=== PATIENT | female | born 1950 | race Caucasian/White ===

== ENCOUNTER 2023-09-17 22:18 | Inpatient (IN) | payer OTHER ==
[2023-09-17] MEDS ORDERED: VANCOMYCIN 1 GM/VIAL ONE (23:21)
[2023-09-17] MEDS ORDERED: ACETAMINOPHEN 500 MG TAB ONE (23:22)
[2023-09-17] MEDS ORDERED: NA CHLORIDE 0.9% 1,000 ML ONE (23:22)
[2023-09-17] MEDS ORDERED: NA CHLORIDE 0.9% 250 ML ONE (23:22)
[2023-09-17 23:28] LABS: Absolute Lymphocytes (CBC) 0.6 K/uL (0.7-4.9); Absolute Monocytes 0.1 K/uL (0.1-1.3); Absolute Neutrophil 3.3 K/uL (1.8-8.0); Basophils % 0.4 % (0-1.3); Eosinophils % 0.1 % (0-4.4); Hematocrit 23.3 % (36.0-45.0); Hemoglobin 7.9 g/dL (12.0-15.0); Lymphocytes % 15.1 % (15.3-44.8); MCH 28.7 pg (27.0-35.0); MCHC 33.8 g/dL (32.0-36.0); MCV 85.1 fL (80-100); MPV 7.9 fL (7.6-11.3); Monocytes % 2.7 % (3.3-12.3); Neutrophils % 81.7 % (41.7-73.7); Nucleated Red Blood Cells % 0.3 % (0-0); Platelets 233 thou/uL (152-406); RBC Red Blood Cell Count 2.74 M/uL (3.86-4.86); Red Cell Distribution Width 16.1 % (12.1-15.2)
[2023-09-17 23:32] LABS: Specific Gravity 1.005 (1.005-1.030); Sqamous Epithelial >50 /HPF (None Seen); Urine Bacteria None Seen /HPF (<20); Urine Bilirubin NEGATIVE (Negative); Urine Blood 3+ (Negative); Urine Clarity Extremely Turbid (Clear); Urine Color Dark-Brown (Yellow); Urine Culture Reflex Order NOT NEEDED; Urine Glucose NEGATIVE (Negative); Urine Ketones NEGATIVE (Negative); Urine Microscopic Reflex YN ORDER UMIC; Urine Mucus 4+ /HPF (None Seen); Urine Nitrite NEGATIVE (Negative); Urine Protein 3+ (Negative); Urine RBC None Seen /HPF (None Seen); Urine Urobilinogen Normal (Normal); Urine WBC None Seen /HPF (<5); Urine pH 7.5 (5.0-7.0)
[2023-09-17 23:41] LABS: PT Prothrombin Time 33.4 SECONDS (9.5-12.5); PTT, Activated Partial Thromb 36.8 SECONDS (24.3-36.9); Protime INR 3.14
[2023-09-17 23:48] LABS: Albumin 2.2 g/dL (3.4-5.0); Albumin/Globulin Ratio 0.8 (1.1-1.8); Anion Gap 11.2 mEq/L (5.0-15.0); Bilirubin Total 1.1 mg/dL (0.2-1.0); Globulin 2.6 g/dL (2.3-3.5); Potassium 4.2 mEq/L (3.5-5.1); Protein, Total 4.8 g/dL (6.4-8.2)
[2023-09-18] MEDS ORDERED: NA CHLORIDE 0.9% 1,000 ML ONE (02:30)
--- NOTE | 2023-09-18 03:30 | ER ---
Nurse's Notes [facility] Name: Jolanta Alvarenga Age: 73 yrs Sex: Female : 1950 Arrival Date: 09/17/2023 Time: 22:18 Bed 7 Private MD: Diagnosis: Cellulitis of right axilla;Abscess of the axilla Presentation: 09/16 22:20 Chief complaint: EMS states: progressively became weak in the past few days, diagnosed rv with Breast Ca with mets last June 2022, has been on chemo. decreased appetite. lymph edema on the right arm, and bilateral lower extremities. with wound in the right axilla, with redness, discharge, foul odor. Coronavirus screen: At this time, the client does not indicate any symptoms associated with coronavirus-19. Ebola Screen: No symptoms or risks identified at this time. Initial Sepsis Screen: Does the patient meet any 2 criteria? No. Patient's initial sepsis screen is negative. Does the patient have a suspected source of infection? No. Patient's initial sepsis screen is negative. Risk Assessment: Do you want to hurt yourself or someone else? Patient reports no desire to harm self or others. Onset of symptoms was September 17, 2023. 22:20 Method Of Arrival: EMS: allegiance 22:20 Acuity: CORI 3 rv Triage Assessment: 22:24 General: Appears ill, obese, unkempt, Behavior is calm, cooperative. Pain: Denies pain. rv Neuro: Level of Consciousness is awake, alert, obeys commands, Oriented to person, place, time, situation. Cardiovascular: Capillary refill < 3 seconds Patient's skin is warm and dry. Respiratory: Airway is patent Respiratory effort is even, unlabored. GI: Reports anorexia. Derm: Wound noted right axilla. Historical: - Allergies: 22:24 No Known Allergies; rv - PMHx: 22:24 breast cancer; Hypertensive disorder; rv - PSHx: 22:24 tumor removal; rv - Immunization history:: Adult Immunizations up to date. - Infectious Disease History:: Denies. - Social history:: Smoking status: Patient denies any tobacco usage or history of. Screenin:25 [facility] ED Fall Risk Assessment (Adult) History of falling in the last 3 months, rv including since admission No falls in past 3 months (0 pts) Score/Fall Risk Level 0 - 2 = Low Risk Oriented to surroundings, Maintained a safe environment, Educated pt \T\ family on fall prevention, incl call for assistance when getting out of bed, Assessed \T\ reinforced patient's understanding of fall precautions. Abuse screen: Denies threats or abuse. Denies injuries from another. Nutritional screening: No deficits noted. Tuberculosis screening: No symptoms or risk factors identified. Assessment: 09/17 04:35 Reassessment: Patient is alert, oriented x 3, equal unlabored respirations, skin rv warm/dry/pink. Vital Signs: 09/16 22:20 BP 119 / 77; Pulse 87; Resp 18; Temp 98.3; Pulse Ox 100% on R/A; rv 09/17 02:11 BP 95 / 55; Pulse 69; Resp 18; Pulse Ox 100% on R/A; jb4 03:31 BP 89 / 57; Pulse 66; Resp 16; Pulse Ox 100% on R/A; rv 04:33 BP 94 / 54; Pulse 67; Resp 17; Temp 98; Pulse Ox 99% on R/A; rv ED Course: 09/16 22:20 Patient arrived in ED. rv 22:23 Rigo Carmen MD is Attending Physician. ec2 22:24 Triage completed. rv 22:25 Arm band placed on right wrist. rv 22:25 Patient has correct armband on for positive identification. Client placed on continuous rv cardiac and pulse oximetry monitoring. NIBP monitoring applied. roller cleaner on. 22:25 No provider procedures requiring assistance completed. Maintain EMS IV. Dressing rv intact. Good blood return noted. Site clean \T\ dry. Gauge \T\ site: G18 LEFT AC. 22:58 Ford Hernandez, YULI is Primary Nurse. rv 23:04 Chest Single View XRAY In Process Unspecified. EDMS 23:05 Initial lab(s) drawn, by me, sent to lab. First set of blood cultures drawn by me. rv 23:20 Second set of blood cultures drawn by me, EKG done, reviewed by Rigo Carmen MD. rv 23:35 Creatine Phosphokinase Sent. rv 23:35 Lactate w/ 2H reflex if indic. Sent. rv 23:35 CBC with Diff Sent. rv 23:35 Blood Culture Adult (2) Sent. rv 23:35 CMP Sent. rv 23:35 Protime (+inr) Sent. rv 23:35 Ptt, Activated Sent. rv 09/17 00:46 CT Chest, Abdomen, Pelvis - W/Contrast In Process Unspecified. EDMS 03:30 Denis Gray MD is Hospitalizing Provider. ec2 04:33 Patient admitted, IV remains in place. rv 06:50 Rigo Carmen MD is Attending Physician. ec2 08:49 patients son would like to be called and updated when she is moved upstairs/ his cell eb is [phone]. 11:55 Cleaned of incontinence. nj1 12:05 Provided Education on: na. ko1 Administered Medications: 09/16 23:35 Drug: Acetaminophen PO 1000 mg PO once Route: PO; rv 09/17 03:37 Follow up: Response: No adverse reaction rv 09/16 23:35 Drug: vancoMYCIN IVPB 1 grams IVPB once over 2 hrs Route: IVPB; Infused Over: 2 hrs; rv Site: left antecubital; 09/17 03:37 Follow up: Response: No adverse reaction; IV Status: Completed infusion; IV Intake: rv 250ml 09/16 23:35 Drug: NS 0.9% IV 1000 ml IV at 1 bolus Per protocol; 1000 mL bolus Route: IV; Rate: 1 rv bolus; Site: left antecubital; 09/17 03:36 Follow up: IV Status: Completed infusion; IV Intake: 1000ml rv 02:33 Drug: NS 0.9% IV 1000 ml IV at 1 bolus Per protocol; 1000 mL bolus Route: IV; Rate: 1 rv bolus; Site: left antecubital; 03:36 Follow up: IV Status: Completed infusion; IV Intake: 1000ml rv 03:36 Drug: Cefepime IVPB 1 grams IVPB at 200 ml/hr once over 30 mins; (mix in NS 100 mL) rv Route: IVPB; Rate: 200 ml/hr; Infused Over: 30 mins; Site: left antecubital; 04:34 Follow up: Response: No adverse reaction; IV Status: Completed infusion rv Medication: 09/16 22:25 VIS not applicable for this client. rv Intake: 09/17 03:36 IV: 1000ml; Total: 1000ml. rv 03:36 IV: 1000ml; Total: 2000ml. rv 03:37 IV: 250ml; Total: 2250ml. rv Outcome: 03:30 Decision to Hospitalize by Provider. ec2 04:34 Admitted to ER Hold. Please see [facility] for further documentation. rv 04:34 Condition: good 04:34 Instructed on the need for admit, 12:06 Patient left the ED. ko1 Signatures: Dispatcher [employer] EDErik Billy RN RN jb4 Erica Morris Ronaldo RN RN rv Estrellita Villafuerte RN RN ko1 Bambi Tejeda RN RN nj1 Rigo Carmen MD MD ec2
--- NOTE | 2023-09-18 03:31 | EDPHYS ---
Physician Documentation [facility] Name: Jolanta Alvarenga Age: 73 yrs Sex: Female : 1950 Arrival Date: 09/17/2023 Time: 22:18 Bed 7 Private MD: ED Physician Rigo Carmen HPI: 09/16 22:44 This 73 yrs old Female presents to ER via EMS with complaints of General Weakness. ec2 22:44 Patient arrives today for general weakness. Patient with increased malaise over the ec2 past couple weeks. Patient not been caring for resolved has not been bathing. Patient reports no fevers or chills, no nausea or vomiting. Patient reports decreased p.o. intake, some bouts of diarrhea. Patient with history of breast cancer, undergoing chemotherapy with Dr. Ferrell. . Historical: - Allergies: 22:24 No Known Allergies; rv - PMHx: 22:24 breast cancer; Hypertensive disorder; rv - PSHx: 22:24 tumor removal; rv - Immunization history:: Adult Immunizations up to date. - Infectious Disease History:: Denies. - Social history:: Smoking status: Patient denies any tobacco usage or history of. ROS: 22:45 Constitutional: as per hpi ec2 Exam: 22:45 Constitutional: GEN: NAD Head: atraumatic Eyes: EOMI Ears: External ears are ec2 normal. CV: regular rate LUNGS: no respiratory distress ABD: non-distended SKIN: Significant skin breakdown to the right axilla with drainage noted. Groin with significant erythema and warmth and discharge and moisture noted. MSK: no evidence of trauma NEURO: moves all extremities equally Vital Signs: 22:20 BP 119 / 77; Pulse 87; Resp 18; Temp 98.3; Pulse Ox 100% on R/A; rv 09/17 02:11 BP 95 / 55; Pulse 69; Resp 18; Pulse Ox 100% on R/A; jb4 03:31 BP 89 / 57; Pulse 66; Resp 16; Pulse Ox 100% on R/A; rv 04:33 BP 94 / 54; Pulse 67; Resp 17; Temp 98; Pulse Ox 99% on R/A; rv MDM: 09/16 22:43 Patient medically screened. ec2 22:45 Data reviewed: vital signs. ED course: Patient arrives today for evaluation of feeling ec2 unwell. Examination remarkable for skin findings as above. Will obtain lab work, CT imaging, chest x-ray, urine studies. Empirically treat with antibiotics, give the patient crystalloid. . 09/17 00:06 ED course: CBC shows slight anemia, slight leukopenia with a WBC of 4. Metabolic ec2 profile shows appropriate electrolytes and renal function. INR elevated at 3.14. Urine is markedly contaminated. Lactate within normal ranges. . 03:26 ED course: I discussed case with Dr. Stiles, general surgery, agrees to consult on the ec2 patient, will see patient in the a.m., plan to keep n.p.o. and possible intervention for the abscess. Patient updated on plan of care, hospitalist contacted for admission.. 09/16 22:44 Order name: Blood Culture Adult (2) ec2 09/16 22:44 Order name: CBC with Diff; Complete Time: 00:05 ec2 09/16 22:44 Order name: CMP; Complete Time: 00:05 ec2 09/16 22:44 Order name: Protime (+inr); Complete Time: 00:05 ec2 09/16 22:44 Order name: Ptt, Activated; Complete Time: 00:05 ec2 09/16 22:44 Order name: Urinalysis w/ reflexes; Complete Time: 00:05 ec2 09/16 23:15 Order name: Lactate w/ 2H reflex if indic.; Complete Time: 00:05 rv 09/16 23:27 Order name: Creatine Phosphokinase; Complete Time: 00:05 EDMS 09/17 05:09 Order name: CBC with Automated Diff EDMS 09/17 05:09 Order name: CBC with Automated Diff EDMS 09/17 05:09 Order name: Comprehensive Metabolic Panel EDMS 09/17 05:09 Order name: Comprehensive Metabolic Panel EDMS 09/17 05:09 Order name: Vancomycin Level Trough EDMS 09/17 05:09 Order name: Vancomycin Level Trough EDMS 09/17 05:10 Order name: Thyroid Stimulating Hormone EDMS 09/17 05:10 Order name: Magnesium EDMS 09/17 05:10 Order name: Magnesium EDMS 09/17 05:10 Order name: Magnesium EDMS 09/17 05:10 Order name: Magnesium EDMS 09/17 08:03 Order name: CBC with Automated Diff EDMS 09/17 08:21 Order name: Basic Metabolic Panel EDDE 09/17 08:22 Order name: Magnesium EDDE 09/17 09:23 Order name: Manual Differential EDDE 09/17 09:23 Order name: CBC Smear Scan EDDE 09/16 22:44 Order name: Chest Single View XRAY ec2 09/16 22:45 Order name: CT Chest, Abdomen, Pelvis - W/Contrast ec2 09/16 22:44 Order name: EKG; Complete Time: 22:45 ec2 09/17 05:09 Order name: CONS Physician Consult EDDE 09/17 05:10 Order name: CONS Physician Consult EDDE 09/16 22:44 Order name: Accucheck; Complete Time: 22:58 ec2 09/16 22:44 Order name: Cardiac monitoring; Complete Time: 22:58 ec2 09/16 22:44 Order name: EKG - Nurse/Tech; Complete Time: 22:58 ec2 09/16 22:44 Order name: IV Saline Lock - Large Bore; Complete Time: 22:58 ec2 09/16 22:44 Order name: Labs collected and sent; Complete Time: 22:58 ec2 09/16 22:44 Order name: O2 Per Protocol; Complete Time: 22:59 ec2 09/16 22:44 Order name: O2 Sat Monitoring; Complete Time: 22:58 ec2 09/16 22:44 Order name: Vital Signs; Complete Time: 22:58 ec2 09/17 03:26 Order name: NPO; Complete Time: 03:31 ec2 Administered Medications: 09/16 23:35 Drug: Acetaminophen PO 1000 mg PO once Route: PO; rv 09/17 03:37 Follow up: Response: No adverse reaction rv 09/16 23:35 Drug: vancoMYCIN IVPB 1 grams IVPB once over 2 hrs Route: IVPB; Infused Over: 2 hrs; rv Site: left antecubital; 09/17 03:37 Follow up: Response: No adverse reaction; IV Status: Completed infusion; IV Intake: rv 250ml 09/16 23:35 Drug: NS 0.9% IV 1000 ml IV at 1 bolus Per protocol; 1000 mL bolus Route: IV; Rate: 1 rv bolus; Site: left antecubital; 09/17 03:36 Follow up: IV Status: Completed infusion; IV Intake: 1000ml rv 02:33 Drug: NS 0.9% IV 1000 ml IV at 1 bolus Per protocol; 1000 mL bolus Route: IV; Rate: 1 rv bolus; Site: left antecubital; 03:36 Follow up: IV Status: Completed infusion; IV Intake: 1000ml rv 03:36 Drug: Cefepime IVPB 1 grams IVPB at 200 ml/hr once over 30 mins; (mix in NS 100 mL) rv Route: IVPB; Rate: 200 ml/hr; Infused Over: 30 mins; Site: left antecubital; 04:34 Follow up: Response: No adverse reaction; IV Status: Completed infusion rv Disposition Summary: 09/18/23 03:30 Hospitalization Ordered Notes: Hospitalization Status: Inpatient Admission ec2 Provider: Denis Gray ec2 Condition: Stable ec2 Problem: new ec2 Symptoms: have improved ec2 Bed/Room Type: Standard ec2 Location: Telemetry/MedSurg (Inpatient)(09/18/23 11:10) eb Room Assignment: [facility](09/18/23 11:10) eb Diagnosis - Cellulitis of right axilla ec2 - Abscess of the axilla ec2 Forms: - Medication Reconciliation Form ec2 - SBAR form ec2 - Leadership Thank You Letter ec2 Signatures: Dispatcher [employer] EDErica Rivera Ronaldo, RN RN rv Keesha Friedman 5 Rigo Carmen MD MD ec2 Corrections: (The following items were deleted from the chart) 09/16 22:45 22:44 BLOOD CULTURE*+BA.LAB.BRZ ordered. [facility] 22:45 22:44 CBC+H.LAB.BRZ ordered. [facility] 22:45 22:44 COMPREHENSIVE METABOLIC PANEL+C.LAB.BRZ ordered. [facility] 22:45 22:44 PROTIME (+INR)+COAG.LAB.BRZ ordered. [facility] 22:45 22:44 PTT, ACTIVATED+COAG.LAB.BRZ ordered. [facility] 22:45 22:44 Urinalysis+U.LAB.BRZ ordered. [facility] 23:27 23:16 CREATINE PHOSPHOKINASE+C.LAB.BRZ ordered. [facility] 09/17 04:12 03:30 Telemetry/MedSurg (Inpatient) ec2 mc5 04:12 03:30 ec2 mc5 11:10 04:12 [facility] mc5 eb 11:10 04:12 [facility]- mc5 eb
[2023-09-18] MEDS ORDERED: WATER FOR INJ,STERILE 10 ML ONE (03:33)
[2023-09-18] MEDS ORDERED: CEFEPIME 1 GM/VIAL ONE ×2 (03:33→08:21)
--- NOTE | 2023-09-18 05:02 | P.HP ---
Certification for Inpatient With expected LOS: >2 Midnights Patient will require the following post-hospital care: Home Health Services Practitioner: I am a practitioner with admitting privileges, knowledge of patient current condition, hospital course, and medical plan of care. Services: Services provided to patient in accordance with Admission requirements found in Title 42 Section 412.3 of the Code of Federal Regulations Patient History Date of Service: 09/18/23 Reason for admission: Weakness History of Present Illness: 73-year-old female with past medical history of HTN, obesity, A-fib on chronic anticoagulation with Eliquis, brain mass status post craniectomy 6 months ago, right breast canceron chemotherapy with Dr. Ferrell, presented because of increasing weakness and malaise since the last 1 week. She states she has been unable to shower walk to care for self. She admits to intermittent chills but denies any overt fever. She denies any nausea vomiting she admits to decreased p.o. intake. She states some loose stools with diarrhea but denies any dysuria or hematuria. On arrival in the ED she was noted with mild leukopenia with WBC at 4.0, hemoglobin of 7.9, BMP shows sodium of 135. Urinalysis was positive for UTI. Further workup shows discharge with redness over the right axillary area. Surgery was consulted for right axillary abscess. Allergies No Known Allergies Allergy (Verified 05/14/23 14:46) Home Medications: Codeine/APAP [Tylenol #3*] 1 tab PO Q6H PRN 05/15/23 Famotidine [Pepcid*] 20 mg PO BID 05/15/23 Melatonin [Melatonin*] 3 mg PO BEDTIME PRN 05/15/23 Nifedipine Xl [Procardia Xl*] 30 mg PO DAILY 05/15/23 Vitamin D [Drisdol*] 50,000 unit PO Q7D 05/15/23 carvediloL [Carvedilol] 6.25 mg PO BID 05/15/23 dexAMETHasone [Dexamethasone] 2 mg PO BID 05/15/23 Cranberry Fruit Extract 200 mg PO BID cap 05/20/23 - Past Medical/Surgical History Has patient received pneumonia vaccine in the past: No Diabetic: No -: afib -: htn -: Breast cancer -: Craniotomy for brain mass - Family History Family History: Reviewed- Non-Contributory - Social History Smoking Status: Never smoker Alcohol use: No CD- Drugs: No Caffeine use: No Place of Residence: Home Review of Systems General: Fever, Chills, Weakness, Malaise Gastrointestinal: Nausea, Diarrhea Neurological: Weakness Physical Examination - Physical Exam General: Alert, Oriented x3, Cooperative, Obese HEENT: Atraumatic, Normocephalic, PERRLA Neck: Supple, 2+ carotid pulse no bruit, JVD not distended Respiratory: Clear to auscultation bilaterally, Normal air movement Cardiovascular: Regular rate/rhythm, Normal S1 S2, Edema Gastrointestinal: Normal bowel sounds, Soft and benign, Non-distended Musculoskeletal: Swelling Integumentary: Other (right breast mass with ulceration and discharge on lateral border extending to axilla) Neurological: Normal speech, Normal strength at 5/5 x4 extr, Cranial nerves 3-12 intact - Studies Laboratory Data (last 24 hrs) 09/17/23 09/17/23 09/17/23 23:05 23:05 23:05 WBC 4.00 L Hgb 7.9 L Hct 23.3 L Plt Count 233 PT 33.4 H INR 3.14 APTT 36.8 Sodium 135 L Potassium 4.2 BUN 14 Creatinine 0.51 L Glucose 111 H Total Bilirubin 1.1 H AST 15 ALT 21 Alkaline Phosphatase 55 Assessment and Plan - Problems (Diagnosis) (1) Breast cancer Current Visit: Yes Status: Acute (2) Abscess of right breast Current Visit: Yes Status: Acute (3) Atrial fibrillation Current Visit: Yes Status: Acute (4) HTN (hypertension) Current Visit: Yes Status: Acute - Plan Impression Right breast cancer with inflammatory cellulitis Hypotensiontransient Atrial fibrillation Obesity Lower extremity edema with lymphedema Plan Will admit to inpatient General surgery consult for possible incision and debridement Extensive inflammatory access and discharge appears to be more secondary bacterial infection of the breast cancer lesion Antibiotics with Vanco and cefepime Follow blood culture Oncology consult with Dr. Ferrell Pain controlled Continue Eliquis for A-fib Borderline low blood pressure, hold Coreg for now Full code Discharge Plan: Home Plan to discharge in: Greater than 2 days - Advance Directives Does patient have a Living Will: Yes Does patient have a Durable POA for Healthcare: Yes - Code Status/Comfort Care Code Status Assessed: Yes Code Status: Full Code Physician Review: Patient Assessed, Agree with Above Assessment and Plan
[2023-09-18] MEDS ORDERED: ACETAMINOPHEN 500 MG TAB PO PRN (05:03)
[2023-09-18] MEDS ORDERED: MORPHINE 2 MG/ML SYR IV PRN (05:03)
[2023-09-18] MEDS ORDERED: ONDANSETRON 4 MG/2 ML VIAL IV PRN (05:03)
[2023-09-18] MEDS ORDERED: ALBUTEROL 2.5 MG/3 ML NEB SOL NEB PRN ×2 (05:03→09:51)
[2023-09-18] MEDS ORDERED: VANCOMYCIN 1 GM in NA CHLORIDE 0.9% 250 ML IVPB SCH (06:00)
[2023-09-18 06:02] VITALS: BMI 33.5
[2023-09-18] MEDS: VANCOMYCIN 500 MG in NA CHLORIDE 0.9% 100 ML IVPB ONE (06:30)
[2023-09-18] MEDS ORDERED: VANCOMYCIN 500 MG/VIAL ONE (06:39)
[2023-09-18] MEDS ORDERED: NA CHLORIDE 0.9% 100 ML ONE ×2 (06:39→08:21)
[2023-09-18] MEDS: PNEUMOCOCCAL VACCINE 0.5 ML IMVAC ONE (08:00)
[2023-09-18] MEDS: INFLUENZA VACCINE (for 6+ mo) 0.5 ML DOSE IMVAC ONE (08:00)
[2023-09-18 08:02] LABS: Absolute Lymphocytes (CBC) 0.6 K/uL (0.7-4.9); Absolute Monocytes 0.1 K/uL (0.1-1.3); Eosinophils % 0.1 % (0-4.4); Hematocrit 22.4 % (36.0-45.0); Hemoglobin 7.4 g/dL (12.0-15.0); Lymphocytes % 20.9 % (15.3-44.8); MCH 28.6 pg (27.0-35.0); MCHC 33.2 g/dL (32.0-36.0); MCV 85.9 fL (80-100); Monocytes % 3.3 % (3.3-12.3); Neutrophils % 74.7 % (41.7-73.7); Nucleated Red Blood Cells % 0.2 % (0-0); Platelets 202 thou/uL (152-406); RBC Red Blood Cell Count 2.61 M/uL (3.86-4.86)
[2023-09-18 08:17] LABS: Magnesium 1.9 mg/dL (1.6-2.4)
[2023-09-18 08:36] LABS: Magnesium 1.8 mg/dL (1.6-2.4); Thyroid Stimulating Hormone 0.729 uIU/mL (0.358-3.740)
[2023-09-18] MEDS: CEFEPIME 1 GM in NA CHLORIDE 0.9% 100 ML IV SCH (09:00)
[2023-09-18] MEDS ORDERED: APIXABAN 5 MG TABLET PO SCH (09:00)
[2023-09-18 09:22] LABS: Differential Total Cells Count 100; Segmented Neutrophils 52 % (40-80); White Blood Cell Scan DIFF (OK)
[2023-09-18 09:23] LABS: Band Neutrophils 23 % (0-1); Blood Morphology Comment NOT SEEN (NOT SEEN); Lymphocytes 20 % (15-42); Metamyelocytes 2 % (0-0); Monocytes 3 % (0-10); Platelet Estimate ADEQ
--- NOTE | 2023-09-18 11:17 | P.PN ---
Date of Service: 09/18/23 Subjective: Reports worsening weakness and malaise for ~1 week. +intermittent chills and diarrhea denies any bleeding. No obvious bleeds on exam decreased PO intake last few days s/p several weeks of chemo unable to say how long she has had skin changes - "haven't looked at it in awhile" ROS: 10 point ROS as noted above, otherwise negative Physical Exam: GEN: Alert, oriented HEENT: Normal conjunctiva, sclera anicteric CV: Regular rate and rhythm, b/l lower extremity lymphedema Pulm: Nonlabored respirations on room air, clear bilaterally ABD: Soft, nontender, nondistended Integumentary: right breast mass with ulceration and discharge on lateral border extending to axilla. intertrigo of inguinal fold Neuro: Normal speech, normal affect vitals reviewed Problem List: Right Breast cancer with inflammatory cellulitis; on chemotherapy intertrigo Anemia of chronic disease secondary to bone marrow suppression from chemo Transient hypotension A-fib on chronic anticoagulation Brain Mass s/p craniectomy (~6months ago) Lower extremity lymphedema Right Breast cancer with inflammatory cellulitis; on chemotherapy reports worsening weakness / malaise x1 week. +intermittent chills and diarrhea/loose stool. No Nausea/vomiting but does report decreased PO intake recently last chemo treatment ~1 week ago. Gets chemo weekly Reports knowing about fluid collection for few months CT chest/abd/pelvis (09/17): Right axillary fluid collection (4.1x3cm) with edema in right lateral chest wall and RUE. +Possible distal rectosigmoid colitis. Large amount of stool/air in colon. General surgery, Dr. Stiles to [place] for possible I&D medical management with antibiotics for now. continue empiric cefepime / vanc (09/17-) follow blood cultures Oncology, Dr. Ferrell consulted discussed with Dr. Ferrell over the phone, could be necrosis secondary to chemo - would be expected within given timeline; if no other infectious critieria (fever/leukotycosis) unclear what skin changes she presented to oncology with, but did present with some degree of erythema/ulceration prior to starting chemo PRN analgesics / antiemetics intertrigo inguinal fold start nystatin powder Anemia of chronic disease secondary to bone marrow suppression from chemo Patient denies any bleeding recently. No obvious bleeds on exam. Denies any abdominal pain. No bloody stools Past iron studies from jul 2023 (iron 54, tsat% 20.4%) hgb 7.9 -> 7.4 most likely secondary to chemo / bone marrow suppression Transient hypotension confirm home meds. Hold antihypertensives for now Monitor BP suspect volume depletion, secondary to decreased oral intake and diarrhea A-fib on chronic anticoagulation Takes eliquis at home. stop eliquis for now. VTE: hold eliquis for now Code: Full Dispo: Home, ~2 days Pending surgical recs / improvement
--- NOTE | 2023-09-18 11:41 | CON ---
Date of Consultation: 09/18/2023 Reason For Consultation: Fluid collection in the right axilla. History Of Present Illness: The patient is a 73-year-old female with past medical history of hyperte nsion, morbid obesity, AFib, on chronic anticoagulation with Eliquis, right breast cancer, which is b eing treated with chemotherapy at this time and a craniectomy 6 months ago for a mass in the brain. The patient presented to the hospital with weakness and malaise for the last week. Last chemo treatm ent was this past week and she took her Eliquis last night. She denies any nausea or vomiting. No d iarrhea or constipation. No dysuria or hematuria. No blood in her stools. No blood in her urine. No sore throat, runny nose, cough, headaches, or dizziness. No chest pain. No fever or chills. Review of Systems: Otherwise, unremarkable. Past Medical History: As per HPI with AFib, hypertension, right breast cancer. Past Surgical History: Craniotomy for brain mass. Allergies: NONE. Social History: Patient does not smoke or drink alcohol. Family History: Noncontributory. Physical Examination: Vital Signs: Stable. Blood pressure is 96/59. She is afebrile. General: She is awake, alert, oriented x3. Head and Neck: No masses. Chest: Clear. Heart: S1, S2. Abdomen: Soft. Extremities: Groin has a rash. There may be fungus in both groins. Extremity very edematous, nonte nder. Breast: Right breast: There is excoriation of the skin on the right lateral breast as a fluctuant f luid in the right axilla; however, there is no warmth and there is no drainage. Musculoskeletal: The right arm appears to have lymphedema in it. Laboratory Data: Her white count is 2.6, H and H is 7.4 and 22.4, neutrophil percentage is 74.7. IN R is 3.14. Electrolytes reviewed. CT of the abdomen and pelvis and chest reveals a right axillary f luid collection with edema in the right lateral chest wall as throughout the right upper extremity. Right upper extremity venous circulation not adequately visualized, possible distal rectosigmoid coli tis. Assessment: A 73-year-old female, what appears to be an advanced breast cancer with possible mets to the brain and receiving chemotherapy with right axillary fluid collection. The patient clinically i s not having complaints with this fluid collection. She states that it has been there for some time and she has no complaint about the rashes in her groin or the excoriation of the skin on the right br east. Recommendations: The patient needs to be hydrated and treated with antibiotics for possible abscess in the axilla, although this seems like a chronic seroma more likely. We will await Dr. Ferrell's evalu ation and discuss with her what the baseline for this patient is and what the best plan going forward would be. I would recommend that we hold the Eliquis and treat her with Lovenox for the time being as she may need an intervention after discussion with Dr. Ferrell. Her INR is relatively high at this p oint probably because of the Eliquis. We will follow that as well. CHEMO/ROMAN Voice ID: [id number] Report ID: [id number]
[2023-09-18] MEDS ORDERED: VANCOMYCIN 1.5 GM in NA CHLORIDE 0.9% 500 ML IVPB SCH (19:00)
[2023-09-18] MEDS: VANCOMYCIN 1.5 GM in NA CHLORIDE 0.9% 500 ML IVPB SCH (19:37)
[2023-09-18] MEDS: NYSTATIN PWDR 100000 UNIT/GM TOP SCH (21:00)
[2023-09-18] MEDS: CEFEPIME 2 GM in NA CHLORIDE 0.9% 100 ML IV SCH (21:42)
[2023-09-19 06:32] LABS: Absolute Lymphocytes (CBC) 1.1 K/uL (0.7-4.9); Absolute Monocytes 0.2 K/uL (0.1-1.3); Absolute Neutrophil 3.3 K/uL (1.8-8.0); Basophils % 0.3 % (0-1.3); Eosinophils % 0.3 % (0-4.4); Hematocrit 26.3 % (36.0-45.0); Hemoglobin 8.5 g/dL (12.0-15.0); Lymphocytes % 22.8 % (15.3-44.8); MCH 28.1 pg (27.0-35.0); MCHC 32.3 g/dL (32.0-36.0); MCV 86.9 fL (80-100); MPV 8.6 fL (7.6-11.3); Monocytes % 5.1 % (3.3-12.3); Neutrophils % 71.5 % (41.7-73.7); Nucleated Red Blood Cells % 0.3 % (0-0); Platelets 251 thou/uL (152-406); RBC Red Blood Cell Count 3.03 M/uL (3.86-4.86); Red Cell Distribution Width 16.6 % (12.1-15.2)
[2023-09-19 06:53] LABS: Albumin 1.9 g/dL (3.4-5.0); Albumin/Globulin Ratio 0.7 (1.1-1.8); Anion Gap 13.6 mEq/L (5.0-15.0); Globulin 2.6 g/dL (2.3-3.5); Magnesium 1.9 mg/dL (1.6-2.4); Potassium 3.6 mEq/L (3.5-5.1); Protein, Total 4.5 g/dL (6.4-8.2)
[2023-09-19] MEDS ORDERED: VANCOMYCIN 1.5 GM in NA CHLORIDE 0.9% 500 ML IVPB SCH (07:00)
--- NOTE | 2023-09-19 09:32 | P.PN ---
Date of Service: 09/19/23 Subjective: Doesn't feel like anything is getting worse. feeling nauseous for ~1 week. similar to her nausea during chemo but more persistent reports redness to groin/inguinal folds for few days. +itchy drainage in axilla new for a few days BP improving afebrile ROS: 10 point ROS as noted above, otherwise negative Physical Exam: GEN: Alert, oriented HEENT: Normal conjunctiva, sclera anicteric CV: Regular rate and rhythm, b/l lower extremity lymphedema Pulm: Nonlabored respirations on room air, clear bilaterally ABD: Soft, nontender, nondistended Integumentary: right breast mass with ulceration and discharge on lateral border extending to axilla. intertrigo of inguinal fold Neuro: Normal speech, normal affect vitals reviewed Problem List: Right Breast cancer with inflammatory cellulitis; on chemotherapy intertrigo Anemia of chronic disease secondary to bone marrow suppression from chemo Hypertension Transient hypotension; improved A-fib on chronic anticoagulation Brain Mass s/p craniectomy (~6months ago) Lower extremity lymphedema Right Breast cancer with inflammatory cellulitis; on chemotherapy reports worsening weakness / malaise x1 week. +intermittent chills and diarrhea/loose stool. No Nausea/vomiting but does report decreased PO intake recently last chemo treatment ~1 week ago. Gets chemo weekly. ~6 round of chemo so far Reports knowing about fluid collection for few months CT chest/abd/pelvis (09/17): Right axillary fluid collection (4.1x3cm) with edema in right lateral chest wall and RUE. +Possible distal rectosigmoid colitis. Large amount of stool/air in colon. General surgery, Dr. Go greer for possible I&D medical management with antibiotics for now. continue empiric cefepime / vanc (09/17-) follow blood cultures Oncology, Dr. Ferrell consulted discussed with Dr. Ferrell over the phone, could be necrosis secondary to chemo - would be expected within given timeline; if no other infectious critieria (fever/leukotycosis) unclear what skin changes she presented to oncology with, but did present with some degree of erythema/ulceration prior to starting chemo PRN analgesics / antiemetics intertrigo noted on inguinal folds continue nystatin powder (09/17-) Anemia of chronic disease secondary to bone marrow suppression from chemo Patient denies any bleeding recently. No obvious bleeds on exam. Denies any abdominal pain. No bloody stools Past iron studies from jul 2023 (iron 54, tsat% 20.4%) most likely secondary to chemo / bone marrow suppression hgb stable Hypertension Transient hypotension; improved confirm home meds, restart as appropriate suspect volume depletion, secondary to decreased oral intake and diarrhea BP improving; now in 140/150s A-fib on chronic anticoagulation Takes eliquis at home. initially held for possible intervention restart 09/18 VTE: restart eliquis Code: Full Dispo: Home, ~2 days Pending improvement
[2023-09-19] MEDS: FLUOCINONIDE 0.05% CREAM 30GM TOP SCH (09:34)
--- NOTE | 2023-09-19 14:56 | PN ---
Date of Progress Note: 09/19/2023 Subjective: The patient is awake, alert. No new complaint. No fever or chills. No significant cristian n in the right axilla. Vital signs stable, afebrile. White count is 4.7. Please note that Dr. Ledy kumar has discussed the case with Dr. Ferrell and she does not think there is any urgent need to assess this fluid collection in the axilla. However, she will follow up with the patient. Physical Examination: There is no significant change. There is no warmth or tenderness in the axilla. Assessment: Right axillary fluid collection, likely a seroma in a patient with likely stage IV breas t cancer. Recommendation: Continue medical management per the hospitalist team. No need for any acute surgica l intervention at this time. We will follow up with the patient on a p.r.n. basis should the patient need any procedure done. I will be happy to re-evaluate patient at that time. CHEMO/ROMAN Voice ID: [id number] Report ID: [id number]
[2023-09-19] MEDS: APIXABAN 5 MG TABLET PO SCH (20:25)
[2023-09-20] MEDS: VANCOMYCIN 1.5 GM in NA CHLORIDE 0.9% 500 ML IVPB SCH (00:52)
[2023-09-20 07:07] LABS: Absolute Monocytes 0.3 K/uL (0.1-1.3); Absolute Neutrophil 4.2 K/uL (1.8-8.0); Basophils % 0.2 % (0-1.3); Eosinophils % 0.1 % (0-4.4); Hematocrit 26.4 % (36.0-45.0); Lymphocytes % 18.8 % (15.3-44.8); MCH 29.3 pg (27.0-35.0); MPV 8.7 fL (7.6-11.3); Monocytes % 5.7 % (3.3-12.3); Neutrophils % 75.2 % (41.7-73.7); Nucleated Red Blood Cells % 0.2 % (0-0); Platelets 214 thou/uL (152-406); RBC Red Blood Cell Count 3.06 M/uL (3.86-4.86); Red Cell Distribution Width 16.5 % (12.1-15.2)
[2023-09-20 07:49] LABS: Anion Gap 14.9 mEq/L (5.0-15.0)
[2023-09-20 07:50] LABS: Potassium 3.9 mEq/L (3.5-5.1)
--- NOTE | 2023-09-20 09:46 | P.CNS ---
Date of Consult: 09/20/23 Reason for Consult: L groin intertrigo, R axilla drainage Chief Complaint: Weakness History of Present Illness: "73-year-old female with past medical history of HTN, obesity, A-fib on chronic anticoagulation with Eliquis, brain mass status post craniectomy 6 months ago, right breast canceron chemotherapy with Dr. Ferrell, presented because of increasing weakness and malaise since the last 1 week." Found to have right breast abscess vs seroma. Dr. Stiles and Dr. Maddox consulted. Allergies No Known Allergies Allergy (Verified 05/14/23 14:46) Home medications list reviewed: Yes Home Medications: Codeine/APAP [Tylenol #3*] 1 tab PO Q6H PRN 05/15/23 Famotidine [Pepcid*] 20 mg PO BID 05/15/23 Melatonin [Melatonin*] 3 mg PO BEDTIME PRN 05/15/23 Nifedipine Xl [Procardia Xl*] 30 mg PO DAILY 05/15/23 Vitamin D [Drisdol*] 50,000 unit PO Q7D 05/15/23 carvediloL [Carvedilol] 6.25 mg PO BID 05/15/23 dexAMETHasone [Dexamethasone] 2 mg PO BID 05/15/23 Cranberry Fruit Extract 200 mg PO BID cap 05/20/23 - Past Medical/Surgical History Diabetic: No -: afib -: htn -: Breast cancer -: Craniotomy for brain mass - Social History Alcohol use: No CD- Drugs: No Caffeine use: No Place of Residence: Home Review of Systems 10-point ROS is otherwise unremarkable General: Weakness Integumentary: As per HPI Neurological: Weakness Physical Examination Temp Pulse Resp BP Pulse Ox 96.7 F L 76 18 133/70 98 09/20/23 08:00 09/20/23 08:00 09/20/23 08:00 09/20/23 08:00 09/20/23 08:00 General: In no apparent distress, Oriented x3 HEENT: Sclerae nonicteric Respiratory: Clear to auscultation bilaterally, Normal air movement Cardiovascular: Regular rate/rhythm, Edema (BLE 2+) Gastrointestinal: Normal bowel sounds, No tenderness Integumentary: Other (right breast cancer wound. bilateral groin skin breakdown. right arm edema) Laboratory data -Reviewed Microbiology data -Reviewed Imagings Data: -Reviewed Conclusions/Impression: Problem list Right Breast cancer with inflammatory cellulitis; on chemotherapy intertrigo Anemia of chronic disease secondary to bone marrow suppression from chemo Hypertension A-fib on chronic anticoagulation Brain Mass s/p craniectomy (~6months ago) Lower extremity lymphedema Right Breast cancer with inflammatory cellulitis - blood cultures: no growth to date - Dr Stiles and Dr Ferrell following - On Cefepime and Vancomycin Recommendations: - Continue cefepime and vancomycin for now. - skin breakdown, groin: apply zinc-based barrier cream to affected areas - right breast/axilla wound: apply medihoney and cover with dressing. q48h. -pressure ulcer buttocks: keep area clean. mepilex dressing. - pressure offloading measures. - Continue supportive care - monitor CBC, BMP, vanco troughs Case discussed with Dr. Maddox, N
--- NOTE | 2023-09-20 13:57 | P.PN ---
Subjective Date of Service: 09/20/23 Chief Complaint: Weakness Patient has no new complaint except generalized weakness. She denies pain. No recorded fever. Physical Examination - Vital Signs Temperature: 98.3 F Blood Pressure: 145/71 Pulse: 88 Respirations: 18 Pulse Ox (%): 99 Assessment And Plan - Plan Physical Exam: GEN: Alert, oriented HEENT: Sclera anicteric CV: Regular rate and rhythm, b/l lower extremity lymphedema Pulm: Nonlabored respirations on room air, clear bilaterally ABD: Soft, nontender, nondistended Integumentary: right breast mass with ulceration and discharge on lateral border extending to axilla. intertrigo of inguinal fold Extremities: Right upper extremity swollen. Neuro: Normal speech, normal affect vitals reviewed Problem List: Right Breast cancer with inflammatory cellulitis; on chemotherapy intertrigo Anemia of chronic disease secondary to bone marrow suppression from chemo Hypertension Transient hypotension; improved A-fib on chronic anticoagulation Brain Mass s/p craniectomy (~6months ago) Lower extremity lymphedema Right Breast cancer with inflammatory cellulitis; on chemotherapy reports worsening weakness / malaise x1 week. +intermittent chills and diarrhea/loose stool. No Nausea/vomiting but does report decreased PO intake recently last chemo treatment ~1 week ago. Gets chemo weekly. ~6 round of chemo so far Known fluid collection for few months CT chest/abd/pelvis (09/17): Right axillary fluid collection (4.1x3cm) with edema in right lateral chest wall and RUE. +Possible distal rectosigmoid colitis. Large amount of stool/air in colon. General surgery, Dr. Stiles input appreciated. Fluid collection thought to be a seroma. medical management recommended by Dr. Stiles continue empiric cefepime / vanc (09/17-) Blood culture shows no growth. Oncology, Dr. Ferrell consulted discussed with Dr. Ferrell over the phone, could be necrosis secondary to chemo - would be expected within given timeline; if no other infectious critieria (fever/leukotycosis) PRN analgesics / antiemetics intertrigo noted on inguinal folds continue nystatin powder (09/17-) Anemia of chronic disease secondary to bone marrow suppression from chemo Patient denies any bleeding recently. No obvious bleeds on exam. Denies any abdominal pain. No bloody stools Past iron studies from jul 2023 (iron 54, tsat% 20.4%) most likely secondary to chemo / bone marrow suppression hgb stable Hypertension Transient hypotension; improved confirm home meds, restart as appropriate suspect volume depletion, secondary to decreased oral intake and diarrhea BP improving; now in 140/150s A-fib on chronic anticoagulation Eliquis resumed. VTE: Eliquis Code: Full \
--- NOTE | 2023-09-20 21:41 | RAD REPORT ---
EXAM DESCRIPTION: CT - Chest Abdomen Pelvis W Cont - 09/18/2023 7:12 am CLINICAL HISTORY: R upper chest wall infxn, Groin infection COMPARISON: None. TECHNIQUE: CT CHEST ABDOMEN PELVIS WITH IV CONTRAST on 09/17/2023 10:45 PM CDT. MIPS reconstructions were generated. This exam was performed according to our departmental dose-optimization program, which includes autom ated exposure control, adjustment of the mA and/or kV according to patient size and/or use of iterati ve reconstruction technique. FINDINGS: Vascular: Thoracic aorta is normal in course and caliber without aneurysm or dissection. P ulmonary arteries are suboptimally opacified. There are no large or central filling defects. The righ t upper extremity arterial system is partially visualized but appears patent. The venous system is no t adequately opacified. Abdominal aorta is normal in course and caliber without aneurysm. Pelvic siva vito are patent without aneurysm or occlusion. Chest: The heart is mildly enlarged. There is no pericardial effusion. Intrathoracic lymph nodes are not enlarged. Within the right axilla is a collection of fluid measuring 4.1 x 3.0 cm. There is no pleural effusion, pleural thickening or pneumothorax. Central airways are patent. There i s edema within the right upper extremity subcutaneous fat, only partially visualized. There is mild e maribell within the right lateral chest wall subcutaneous fat. Abdomen: There is a probable tiny cyst in the posterior right lobe of the liver. There is no biliary dilatation. Gallbladder is normally distended. The pancreas and spleen are normal in appearance. The adrenal glands and kidneys are unremarkable. There is no free air. There is no retroperitoneal adenopathy. Pelvis: There is mild thickening of much of the distal rectosigmoid colon with faint surrounding elisabet rectal inflammation. There is large amount of stool and air throughout the colon. Urinary bladder is unremarkable. There is no free fluid. Uterus is normal in size. Appendix is normal. Skeleton: There are no acute osseous findings. No suspicious bony lesions. IMPRESSION: Right axillary fluid collection with edema in the right lateral chest wall as well as th roughout the right upper extremity. Right upper extremity venous vasculature not adequately visualize d. Possible distal rectosigmoid colitis. Electronically signed by: Gonzalez Gutierrez MD 09/18/2023 02:38 AM CDT Due to temporary technical issues with the PACS/Fluency reporting system, reports are being signed by the in house radiologists without review as a courtesy to insure prompt reporting. The interpreting radiologist is fully responsible for the content of the report.
[2023-09-20] MEDS: AMOX/K CLAV 875 MG TAB PO SCH (21:46)
--- NOTE | 2023-09-20 21:48 | RAD REPORT ---
EXAM DESCRIPTION: RAD - Chest Single View - 09/17/2023 11:03 pm CLINICAL HISTORY: The patient is 73 years old and is Female; COUGH Bed Name: 7 TECHNIQUE: Frontal view of the chest. COMPARISON: No relevant prior studies available. FINDINGS: LUNGS: No discrete focal consolidation. PLEURAL SPACE: No appreciable pleural effusion or pneumothorax. MEDIASTINUM: Prominence of the cardiomediastinal silhouette, though likely exaggerated secondary to portable technique, lordotic positioning, and patient body habitus. BONES/JOINTS: Multilevel spondylosis. Mild scoliotic curvature of the thoracic spine. IMPRESSION: No definite acute findings in the chest. Electronically signed by: Damian Ramírez MD 09/18/2023 12:25 AM CDT Due to temporary technical issues with the PACS/Fluency reporting system, reports are being signed by the in house radiologists without review as a courtesy to insure prompt reporting. The interpreting radiologist is fully responsible for the content of the report.
--- NOTE | 2023-09-21 09:50 | P.PN ---
Infectious Disease Progress Note Subjective: No new changes. In no apparent distress. Denies any new/worsening complaints. Physical Examination Temp Pulse Resp BP Pulse Ox 98 F 86 16 150/70 H 97 09/21/23 08:00 09/21/23 08:00 09/21/23 08:00 09/21/23 08:00 09/21/23 08:00 General: In no apparent distress, Oriented x3 HEENT: Sclerae nonicteric Respiratory: Clear to auscultation bilaterally, Normal air movement Cardiovascular: Regular rate/rhythm. BLE edema. Gastrointestinal: Normal bowel sounds, No tenderness Integumentary: right breast cancer wound. bilateral groin skin breakdown. right arm edema. Bilateral buttocks pressure injury stage II/III Laboratory data -Reviewed Microbiology data -Reviewed Imagings Data: -Reviewed Assessment and Plan Problem list Right Breast cancer with inflammatory cellulitis; on chemotherapy intertrigo Anemia of chronic disease secondary to bone marrow suppression from chemo Hypertension A-fib on chronic anticoagulation Brain Mass s/p craniectomy (~6months ago) Lower extremity lymphedema Right Breast cancer with inflammatory cellulitis - blood cultures: no growth to date - Previously on Cefepime and Vancomycin (09/17-09/19). Switched to Augmentin PO on 09/19. - General surgery Dr Stiles following - Oncology Dr Ferrell following Intertrigo, bilateral groin/inguinal folds - On nystatin powder Recommendations: - Deescalated abx to Augmentin on 09/19. Continue to complete a total of 10 days antibiotic therapy (09/17-09/26) - Intertrigo inguinal folds: Continue with nystatin powder x 2 weeks. - right breast/axilla wound: apply medihoney and cover with dressing; q48h. -pressure injury buttocks: keep area clean. Apply zinc-based barrier cream BID - pressure offloading measures - Continue supportive care - monitor CBC, BMP, vanco troughs Case discussed with Dr. Maddox, N
--- NOTE | 2023-09-21 13:49 | P.PN ---
Subjective Date of Service: 09/21/23 Chief Complaint: Weakness No major changes from yesterday. No recorded fever. Physical Examination - Vital Signs Temperature: 97.1 F Blood Pressure: 147/101 Pulse: 80 Respirations: 17 Pulse Ox (%): 96 Assessment And Plan - Plan Physical Exam: GEN: Alert, oriented HEENT: Sclera anicteric CV: Regular rate and rhythm, b/l lower extremity lymphedema Pulm: Nonlabored respirations on room air, clear bilaterally ABD: Soft, nontender, nondistended Integumentary: right breast mass with ulceration and discharge on lateral border extending to axilla. intertrigo of inguinal fold Extremities: Right upper extremity swollen. Neuro: Normal speech, normal affect vitals reviewed Problem List: Right Breast cancer with inflammatory cellulitis; on chemotherapy intertrigo Anemia of chronic disease secondary to bone marrow suppression from chemo Hypertension Transient hypotension; improved A-fib on chronic anticoagulation Brain Mass s/p craniectomy (~6months ago) Lower extremity lymphedema Right Breast cancer with inflammatory cellulitis; on chemotherapy last chemo treatment ~1 week ago. Gets chemo weekly. ~6 round of chemo so far CT chest/abd/pelvis (09/17): Right axillary fluid collection (4.1x3cm) with edema in right lateral chest wall and RUE. +Possible distal rectosigmoid colitis. Large amount of stool/air in colon. Known fluid collection-right axilla for few months General surgery, Dr. Stiles input appreciated. Fluid collection thought to be a seroma. Medical management recommended by Dr. Stiles On antibiotics and infectious disease is following Blood culture shows no growth. Patient is mentioning she does not want to pursue any more chemo. Ongoing goals of care discussions PRN analgesics / antiemetics intertrigo noted on inguinal folds continue nystatin powder (09/17-) Anemia of chronic disease secondary to bone marrow suppression from chemo Patient denies any bleeding recently. No obvious bleeds on exam. Denies any abdominal pain. No bloody stools Past iron studies from jul 2023 (iron 54, tsat% 20.4%) most likely secondary to chemo / bone marrow suppression Hemoglobin has been stable Hypertension Transient hypotension; improved Patient is no longer hypotensive. She is currently hypertensive Resume antihypertensives stepwise, starting with Coreg. A-fib on chronic anticoagulation Eliquis resumed. VTE: Eliquis Code: Full
[2023-09-21] MEDS: carvediloL 6.25 MG TAB PO SCH (16:40)
[2023-09-21] MEDS: JUVEN PACKET PO SCH (21:00)
[2023-09-22 07:13] LABS: Absolute Lymphocytes (CBC) 1.5 K/uL (0.7-4.9); Absolute Monocytes 1.5 K/uL (0.1-1.3); Absolute Neutrophil 8.9 K/uL (1.8-8.0); Basophils % 0.1 % (0-1.3); Hematocrit 24.2 % (36.0-45.0); Hemoglobin 8.2 g/dL (12.0-15.0); Lymphocytes % 12.4 % (15.3-44.8); MCH 28.7 pg (27.0-35.0); MCV 84.6 fL (80-100); MPV 7.5 fL (7.6-11.3); Monocytes % 12.9 % (3.3-12.3); Neutrophils % 74.6 % (41.7-73.7); Nucleated Red Blood Cells % 0.2 % (0-0); Platelets 288 thou/uL (152-406); RBC Red Blood Cell Count 2.86 M/uL (3.86-4.86); Red Cell Distribution Width 16.4 % (12.1-15.2)
[2023-09-22 07:27] LABS: Anion Gap 13.7 mEq/L (5.0-15.0); Potassium 2.7 mEq/L (3.5-5.1)
--- NOTE | 2023-09-22 09:10 | P.PN ---
Infectious Disease Progress Note Subjective: No major changes. In no apparent distress. Denies any new/worsening complaints. Patient to work with physical therapy today. + generalized weakness. Physical Examination Temp Pulse Resp BP Pulse Ox 97.7 F 79 16 109/53 L 96 09/22/23 04:00 09/22/23 04:00 09/22/23 04:00 09/22/23 04:00 09/22/23 04:00 General: In no apparent distress, Oriented x3 HEENT: Sclerae nonicteric Respiratory: Clear to auscultation bilaterally, Normal air movement Cardiovascular: Regular rate/rhythm. BLE edema. Gastrointestinal: Normal bowel sounds, No tenderness. non-distended. Integumentary: right breast cancer wound. bilateral groin skin breakdown. right arm edema. Bilateral buttocks pressure injury stage II/III Laboratory data -Reviewed Microbiology data -Reviewed Imagings Data: -Reviewed Assessment and Plan Problem list Right Breast cancer with inflammatory cellulitis; on chemotherapy intertrigo Anemia of chronic disease secondary to bone marrow suppression from chemo Hypertension A-fib on chronic anticoagulation Brain Mass s/p craniectomy (~6months ago) Lower extremity lymphedema Right Breast cancer with inflammatory cellulitis - blood cultures: no growth to date - Previously on Cefepime and Vancomycin (09/17-09/19). Switched to Augmentin PO on 09/19. - General surgery Dr Stiles following - Oncology Dr Ferrell following Intertrigo, bilateral groin/inguinal folds - On nystatin powder Recommendations: - Deescalated abx to Augmentin on 09/19. Continue to complete a total of 10 days antibiotic therapy (09/17-09/26) - Intertrigo inguinal folds: Continue with nystatin powder BID x 2 weeks. - right breast/axilla wound: apply medihoney and cover with dressing; q48h. -pressure injury buttocks: keep area clean. Apply zinc-based barrier cream BID - pressure offloading measures - Continue supportive care Case discussed with Dr. Maddox, N
[2023-09-22 09:32] LABS: Band Neutrophils 3 % (0-1); Blood Morphology Comment NOT SEEN (NOT SEEN); Differential Total Cells Count 100; Lymphocytes 25 % (15-42); Metamyelocytes 5 % (0-0); Monocytes 7 % (0-10); Myelocytes 10 % (0-0); Platelet Estimate ADEQ; Segmented Neutrophils 50 % (40-80); Toxic Granulation PRESENT
--- NOTE | 2023-09-22 12:02 | P.PN ---
Subjective Date of Service: 09/22/23 Chief Complaint: Weakness No major changes from yesterday. Patient has no new complaint. No recorded fever. Physical Examination - Vital Signs Temperature: 96.9 F Blood Pressure: 106/60 Pulse: 66 Respirations: 17 Pulse Ox (%): 97 Assessment And Plan - Plan Physical Exam: GEN: Alert, oriented HEENT: Sclera anicteric CV: Regular rate and rhythm, b/l lower extremity lymphedema Pulm: Nonlabored respirations on room air, clear bilaterally ABD: Soft, nontender, nondistended Integumentary: right breast mass with ulceration and discharge on lateral border extending to axilla. intertrigo of inguinal fold Extremities: Right upper extremity lymphedema Neuro: Normal speech, normal affect, no focal motor deficit. vitals reviewed Problem List: Right Breast cancer with inflammatory cellulitis; on chemotherapy intertrigo Anemia of chronic disease secondary to bone marrow suppression from chemo Hypertension Transient hypotension; improved A-fib on chronic anticoagulation Brain Mass s/p craniectomy (~6months ago) Lower extremity lymphedema Right Breast cancer with inflammatory cellulitis; on chemotherapy CT chest/abd/pelvis (09/17): Right axillary fluid collection (4.1x3cm) with edema in right lateral chest wall and RUE. +Possible distal rectosigmoid colitis. Large amount of stool/air in colon. Known fluid collection-right axilla for few months General surgery, Dr. Stiles input appreciated. Fluid collection thought to be a seroma. Medical management recommended by Dr. Stiles On antibiotics and infectious disease is following Blood culture shows no growth. Patient is mentioning she does not want to pursue any more chemo. Ongoing goals of care discussions. Dr. Ferrell recommend rehab first and when she is feeling better, she can meet with her in the office and discuss goals of care. IV antibiotics transition to oral Augmentin. PRN analgesics / antiemetics intertrigo noted on inguinal folds continue nystatin powder (09/17-) Anemia of chronic disease secondary to bone marrow suppression from chemo Patient denies any bleeding recently. No obvious bleeds on exam. Denies any abdominal pain. No bloody stools most likely secondary to chemo / bone marrow suppression Hemoglobin has been stable Hypertension Transient hypotension; improved Patient has soft blood pressure. Continue Coreg with holding parameters. A-fib on chronic anticoagulation Eliquis resumed. Continue Coreg. VTE: Eliquis Code: Full
[2023-09-22] MEDS: KCL 20 MEQ/100 mL IVPB 20 MEQ/100 ML BAG IV SCH ×2 (13:57→22:40)
[2023-09-22] MEDS: MEDIHONEY 44 ML TOPICAL TUBE TOP SCH (13:58)
[2023-09-22] MEDS ORDERED: NA CHLORIDE 0.9% 500 ML IV SCH (14:00)
[2023-09-22] MEDS: POTASSIUM CL SA 10 MEQ TAB PO ONE (14:55)
--- NOTE | 2023-09-22 16:11 | P.PN ---
Date of Service: 09/22/23 Patient developed cardiac pauses up to 5.5-seconds. She was asymptomatic Patient has hypokalemia with potassium 2.7. Rapid response was called on her. Patient given 40 ml equivalents of potassium chloride. IV access reestablished. IV potassium replacement ordered to be given stat. Give IV magnesium Recheck potassium and magnesium levels.
[2023-09-22] MEDS ORDERED: CALCIUM GLUC 10% INJ 9.3 MEQ in NA CHLORIDE 0.9% 100 ML IV ONE (16:17)
[2023-09-22] MEDS ORDERED: KCL 20 MEQ/100 mL IVPB 100 ML IV ONE ×2 (16:19→17:44)
[2023-09-22] MEDS ORDERED: Magnesium Sulfate 2gm IVPB 2 G/50 ML BAG IV ONE (16:19)
[2023-09-22] MEDS ORDERED: CALCIUM GLUCONATE 1 GM IVPB 0 GM/0 ML BAG IV ONE (16:19)
[2023-09-22] MEDS: Magnesium Sulfate 2gm IVPB 2 G/50 ML BAG IV ONE (16:20)
[2023-09-22] MEDS ORDERED: Calcium Chloride 10% INJ SYR IV ONE (16:24)
[2023-09-22] MEDS: CALCIUM CL 10% 13.6 MEQ in NA CHLORIDE 0.9% 100 ML IV ONE (16:56)
[2023-09-22] MEDS: NOREPINEPHRINE 4 MG in D5W 250 ML IV SCH (16:57)
--- NOTE | 2023-09-22 19:20 | RAD REPORT ---
EXAM DESCRIPTION: MARY ELLENMesha Single View09/22/2023 6:47 pm CLINICAL HISTORY: Device placement/central venous catheter placement IMPRESSION: Central venous catheter with its tip in the superior vena cava No pneumothorax
[2023-09-22] MEDS ORDERED: AMOX/K CLAV 875 MG TAB ONE (21:05)
[2023-09-22 21:52] LABS: Magnesium 2.4 mg/dL (1.6-2.4); Potassium 3.7 mEq/L (3.5-5.1)
[2023-09-23 05:10] LABS: Absolute Lymphocytes (CBC) 1.7 K/uL (0.7-4.9); Absolute Monocytes 1.8 K/uL (0.1-1.3); Absolute Neutrophil 12.7 K/uL (1.8-8.0); Basophils % 0.1 % (0-1.3); Hematocrit 23.4 % (36.0-45.0); Hemoglobin 7.9 g/dL (12.0-15.0); Lymphocytes % 10.6 % (15.3-44.8); MCH 28.5 pg (27.0-35.0); MCHC 33.9 g/dL (32.0-36.0); MCV 84.1 fL (80-100); Neutrophils % 78.3 % (41.7-73.7); Nucleated RBC Absolute Count 0.1 (0-0); Nucleated Red Blood Cells % 0.5 % (0-0); Platelets 341 thou/uL (152-406); RBC Red Blood Cell Count 2.78 M/uL (3.86-4.86); Red Cell Distribution Width 16.7 % (12.1-15.2)
[2023-09-23 05:26] LABS: Anion Gap 10.4 mEq/L (5.0-15.0); Magnesium 2.5 mg/dL (1.6-2.4); Potassium 3.4 mEq/L (3.5-5.1)
[2023-09-23 05:59] LABS: Phosphorus 1.3 mg/dL (2.5-4.9)
[2023-09-23] MEDS: POTASSIUM PHOS IN 0.9 % NACL 15 MMOL/250 ML BAG IV ONE (06:32)
[2023-09-23] MEDS: KCL 20 MEQ/100 mL IVPB 20 MEQ/100 ML BAG IV SCH (06:32)
[2023-09-23] MEDS ORDERED: AMOX/K CLAV 875 MG TAB ONE (08:23)
--- NOTE | 2023-09-23 08:43 | P.PN ---
Infectious Disease Progress Note Subjective: yesterday afternoon, patient developed cardiac pauses, rapid response was called and pt was transferred to ICU. Patient seen in ICU. In no apparent distress. Denies any new or worsening complaints at this time. + generalized weakness. Physical Examination Temp Pulse Resp BP Pulse Ox 97.3 F 74 17 102/61 96 09/23/23 04:30 09/23/23 08:00 09/23/23 06:00 09/23/23 08:00 09/23/23 06:00 General: In no apparent distress, Oriented x3 HEENT: Sclerae nonicteric Respiratory: Clear to auscultation bilaterally, Normal air movement Cardiovascular: Regular rate/rhythm. BLE edema 3+. Gastrointestinal: Normal bowel sounds, No tenderness. non-distended. Integumentary: right breast cancer wound. bilateral groin skin breakdown. right arm edema. Bilateral buttocks pressure injury stage II/III Laboratory data -Reviewed Microbiology data -Reviewed Imagings Data: -Reviewed Medications List: Acetaminophen (Acetaminophen 500 Mg Tab) 500 mg PO Q6H PRN PRN Reason: Pain scale 2-4 (Mild) Albuterol Sulfate (Albuterol 2.5 Mg/3 Ml Neb Leidy) 2.5 mg NEB [id number] PRN PRN Reason: SHORTNESS OF BREATH Apixaban (Apixaban 5 Mg Tablet) 5 mg PO BID [facility] Last Admin: 09/23/23 08:31 Dose: 5 mg Carvedilol (Carvedilol 6.25 Mg Tab) 6.25 mg PO BIDWM [facility] Last Admin: 09/23/23 08:00 Dose: Not Given Emollient Gel ([facility] 44 Ml Topical Tube) 1 appl TOP DAILY [facility] Last Admin: 09/23/23 08:33 Dose: 1 appl Fluocinonide (Fluocinonide 0.05% Cream 30gm) 1 appl TOP DAILY [facility] Last Admin: 09/23/23 08:33 Dose: 1 appl Sodium Chloride (Sodium Chloride) 500 mls @ 0 mls/hr IV .Q0M [facility] Norepinephrine Bitartrate 4 mg (/ Dextrose) 254 mls @ 33.7 mls/hr IV TITR [facility]; Protocol Last Titration: 09/22/23 18:00 Dose: 0.05 mcg/kg/min, 16.9 mls/hr Vancomycin HCl 1.5 gm/ Sodium (Chloride) 500 mls @ 250 mls/hr IVPB Q18H [facility] Cefepime HCl 2 gm/ Sodium (Chloride) 100 mls @ 200 mls/hr IV Q8HR [facility] Last Admin: 09/23/23 10:42 Dose: 100 mls L-Arginine/L-Glutamine/HMB (Bladimir Packet) 1 pkt PO BID [facility] Last Admin: 09/23/23 08:32 Dose: 1 pkt Morphine Sulfate (Morphine 2 Mg/Ml Syr) 2 mg IV Q4H PRN PRN Reason: Pain scale 8-10 (Severe) Nystatin (Nystatin Pwdr [id number] Unit/Gm) 1 appl TOP BID [facility] Last Admin: 09/23/23 08:33 Dose: 1 appl Ondansetron HCl (Ondansetron 4 Mg/2 Ml Vial) 4 mg IV Q8H PRN PRN Reason: NAUSEA / VOMITING Assessment and Plan Problem list Right Breast cancer with inflammatory cellulitis; on chemotherapy intertrigo Anemia of chronic disease secondary to bone marrow suppression from chemo Hypertension A-fib on chronic anticoagulation Brain Mass s/p craniectomy (~6months ago) Lower extremity lymphedema Right Breast cancer with inflammatory cellulitis - blood cultures: no growth to date - Previously on Cefepime and Vancomycin (09/17-09/19). Switched to Augmentin PO on 09/19. - General surgery Dr Stiles following - Oncology Dr Ferrell following Intertrigo, bilateral groin/inguinal folds - On nystatin powder Recommendations: - Deescalated abx to Augmentin on 09/19. Continue to complete a total of 10 days antibiotic therapy (09/17-09/26) - Intertrigo inguinal folds: Continue with nystatin powder BID x 2 weeks. - right breast/axilla wound: apply medihoney and cover with dressing; q48h. -pressure injury buttocks: keep area clean. Apply zinc-based barrier cream BID - pressure offloading measures - Continue supportive care - electrolyte replacement per protocol Case discussed with Dr. Maddox, N
[2023-09-23] MEDS ORDERED: CEFEPIME 2 GM VIAL ONE ×2 (10:40→16:59)
[2023-09-23] MEDS ORDERED: NA CHLORIDE 0.9% 100 ML ONE ×2 (10:40→16:59)
[2023-09-23] MEDS: CEFEPIME 2 GM in NA CHLORIDE 0.9% 100 ML IV SCH (10:42)
[2023-09-23] MEDS: VANCOMYCIN 1.5 GM in NA CHLORIDE 0.9% 500 ML IVPB SCH (11:00)
[2023-09-23 11:01] LABS: C.diff Antigen/Toxin Ag neg : Tox neg (NEG : NEG); CDIFF INTERNAL NEG CONTROL White Background (WHITE BKGD); STOOL CONSISTENCY Liquid/Semi-Solid
--- NOTE | 2023-09-23 15:24 | P.PN ---
Subjective Date of Service: 09/23/23 Chief Complaint: Weakness Patient was transferred to the ICU yesterday due to episodes of bradycardia with heart rate down into the 20s and long seconds pauses Patient was asymptomatic. She has been drowsy. No recorded fever. Oral intake has been poor. Physical Examination - Vital Signs Temperature: 97.2 F Blood Pressure: 122/67 Pulse: 92 Respirations: 18 Pulse Ox (%): 97 - Studies Microbiology Data (last 24 hrs): 09/17/23 23:05 Blood - Blood Aerobic Blood Culture - Final No growth in 5 days. 09/17/23 23:05 Blood - Blood Anaerobic Blood Culture - Final No growth in 5 days. 09/17/23 23:05 Blood - Blood Aerobic Blood Culture - Final No growth in 5 days. 09/17/23 23:05 Blood - Blood Anaerobic Blood Culture - Final No growth in 5 days. Assessment And Plan - Plan Physical Exam: GEN: Alert, oriented, drowsy but easily arousable. HEENT: Sclera anicteric CV: Regular rate and rhythm, b/l lower extremity lymphedema Pulm: Nonlabored respirations on room air, clear bilaterally ABD: Soft, nontender, nondistended Integumentary: right breast mass with ulceration and discharge on lateral border extending to axilla. intertrigo of inguinal fold Extremities: Right upper extremity lymphedema Neuro: Normal speech, normal affect, no focal motor deficit. vitals reviewed Problem List: Right Breast cancer with inflammatory cellulitis; on chemotherapy intertrigo Anemia of chronic disease secondary to bone marrow suppression from chemo Hypertension Transient hypotension; improved A-fib on chronic anticoagulation Brain Mass s/p craniectomy (~6months ago) Lower extremity lymphedema Stage III bilateral gluteal decubitus ulcer Right Breast cancer with inflammatory cellulitis; on chemotherapy CT chest/abd/pelvis (09/17): Right axillary fluid collection (4.1x3cm) with edema in right lateral chest wall and RUE. +Possible distal rectosigmoid colitis. Large amount of stool/air in colon. Known fluid collection-right axilla for few months General surgery, Dr. Stiles input appreciated. Fluid collection thought to be a seroma. Medical management recommended by Dr. Stiles On antibiotics and infectious disease is following Blood culture shows no growth. Patient is mentioning she does not want to pursue any more chemo. Ongoing goals of care discussions. Dr. Ferrell recommend rehab first and when she is feeling better, she can meet with her in the office and discuss goals of care. Leukocytosis trended up, given the patient was slightly hypotensive and bradycardia, Augmentin changed to IV antibiotics, monitor CBC to follow leukocytosis. Infectious disease input appreciated. PRN analgesics / antiemetics Patient stated she does not want to go through chemotherapy again even when she gets better. Social service to follow for goals of care discussions intertrigo/gluteal decubitus ulcer noted on inguinal folds continue nystatin powder (09/17-) Pressure ulcer precautions Local wound care. Anemia of chronic disease secondary to bone marrow suppression from chemo Patient denies any bleeding recently. No obvious bleeds on exam. Denies any abdominal pain. No bloody stools most likely secondary to chemo / bone marrow suppression Hemoglobin has been stable Hypertension Transient hypotension; improved Bradycardia Patient has soft blood pressure. Coreg is on hold due to bradycardia and soft blood pressure. Patient is DNR A-fib on chronic anticoagulation Eliquis resumed. Coreg is on hold due to severe bradycardia. VTE: Eliquis Code: DNR/DNI
[2023-09-24] MEDS ORDERED: NA CHLORIDE 0.9% 100 ML ONE ×2 (00:32→07:58)
[2023-09-24] MEDS ORDERED: CEFEPIME 2 GM VIAL ONE ×2 (00:32→07:58)
[2023-09-24 05:26] LABS: Absolute Basophils 0.1 K/uL (0-0.5); Absolute Lymphocytes (CBC) 1.8 K/uL (0.7-4.9); Absolute Monocytes 1.7 K/uL (0.1-1.3); Absolute Neutrophil 14.9 K/uL (1.8-8.0); Basophils % 0.3 % (0-1.3); Hemoglobin 7.6 g/dL (12.0-15.0); Lymphocytes % 9.9 % (15.3-44.8); MCHC 32.9 g/dL (32.0-36.0); MCV 85.1 fL (80-100); MPV 7.5 fL (7.6-11.3); Neutrophils % 80.8 % (41.7-73.7); Nucleated RBC Absolute Count 0.1 (0-0); Nucleated Red Blood Cells % 0.5 % (0-0); Platelets 277 thou/uL (152-406); RBC Red Blood Cell Count 2.71 M/uL (3.86-4.86); Red Cell Distribution Width 16.4 % (12.1-15.2)
[2023-09-24 05:31] LABS: Magnesium 2.1 mg/dL (1.6-2.4); Phosphorus 1.9 mg/dL (2.5-4.9)
[2023-09-24] MEDS ORDERED: KCL 20 MEQ/100 mL IVPB 100 ML IV ONE (06:35)
[2023-09-24 07:57] LABS: Band Neutrophils 3 % (0-1); Differential Total Cells Count 100; Lymphocytes 13 % (15-42); Metamyelocytes 9 % (0-0); Monocytes 9 % (0-10); Myelocytes 14 % (0-0); Segmented Neutrophils 50 % (40-80); Toxic Granulation PRESENT
[2023-09-24 07:58] LABS: Basophilic Stippling 1+; Blood Morphology Comment NOTED (NOT SEEN); Platelet Estimate ADEQ; Platelets Clumped FEW; Reactive Lymphocytes 2 %
[2023-09-24] MEDS ORDERED: APIXABAN 5 MG TABLET ONE (07:58)
[2023-09-24] MEDS: KCL 20 MEQ/100 mL IVPB 20 MEQ/100 ML BAG IV SCH ×2 (08:28→16:53)
[2023-09-24] MEDS: POTASSIUM PHOS IN 0.9 % NACL 15 MMOL/250 ML BAG IV ONE (08:29)
--- NOTE | 2023-09-24 12:41 | P.PN ---
Subjective Date of Service: 09/24/23 Chief Complaint: Weakness Patient reports generalized weakness. Nursing staff report patient has been refusing medications, refusing to turn and only want to be kept comfortable. No recorded fever. Oral intake has been poor. Physical Examination - Vital Signs Temperature: 97.0 F Blood Pressure: 130/80 Pulse: 95 Respirations: 22 Pulse Ox (%): 97 Assessment And Plan - Plan Physical Exam: GEN: Alert, oriented, drowsy but easily arousable. HEENT: Sclera anicteric CV: Regular rate and rhythm, b/l lower extremity lymphedema Pulm: Nonlabored respirations on room air, clear bilaterally ABD: Soft, nontender, nondistended Integumentary: right breast mass with ulceration and discharge on lateral border extending to axilla. intertrigo of inguinal fold Extremities: Right upper extremity lymphedema Neuro: Normal speech, normal affect, no focal motor deficit. vitals reviewed Problem List: Right Breast cancer with inflammatory cellulitis; on chemotherapy intertrigo Anemia of chronic disease secondary to bone marrow suppression from chemo Hypertension Transient hypotension; improved A-fib on chronic anticoagulation Brain Mass s/p craniectomy (~6months ago) Lower extremity lymphedema Stage III bilateral gluteal decubitus ulcer Right Breast cancer with inflammatory cellulitis; on chemotherapy CT chest/abd/pelvis (09/17): Right axillary fluid collection (4.1x3cm) with edema in right lateral chest wall and RUE. +Possible distal rectosigmoid colitis. Large amount of stool/air in colon. Known fluid collection-right axilla for few months General surgery, Dr. Stiles input appreciated. Fluid collection thought to be a seroma. Medical management recommended by Dr. Stiles On antibiotics and infectious disease is following Blood culture shows no growth. Oral intake has also been poor. Dr. Ferrell recommended rehab first and when she is feeling better, she can meet with her in the office and discuss goals of care. On empiric IV antibiotics given leukocytosis. Infectious disease input appreciated. PRN analgesics / antiemetics Patient stated she does not want to go through chemotherapy again even when she gets better. Patient mentioned she does not want to pursue any more chemo. She also mentioned today she wants to be kept comfortable and now refusing oral medications. intertrigo/gluteal decubitus ulcer noted on inguinal folds continue nystatin powder (09/17-) Pressure ulcer precautions Local wound care. Anemia of chronic disease secondary to bone marrow suppression from chemo Patient denies any bleeding recently. No obvious bleeds on exam. Denies any abdominal pain. No bloody stools most likely secondary to chemo / bone marrow suppression Hemoglobin has been stable Hypertension Transient hypotension; improved Bradycardia Patient has soft blood pressure. Coreg is on hold due to bradycardia and soft blood pressure. Patient is DNR A-fib on chronic anticoagulation Eliquis resumed. She refused Eliquis today. Coreg is on hold due to severe bradycardia. VTE: Eliquis Code: DNR/DNI
[2023-09-25 05:06] LABS: Absolute Basophils 0.1 K/uL (0-0.5); Absolute Lymphocytes (CBC) 1.6 K/uL (0.7-4.9); Absolute Monocytes 1.1 K/uL (0.1-1.3); Absolute Neutrophil 17.2 K/uL (1.8-8.0); Basophils % 0.3 % (0-1.3); Hematocrit 22.4 % (36.0-45.0); Hemoglobin 7.4 g/dL (12.0-15.0); MCH 27.8 pg (27.0-35.0); MCHC 32.8 g/dL (32.0-36.0); MCV 84.9 fL (80-100); MPV 7.2 fL (7.6-11.3); Monocytes % 5.6 % (3.3-12.3); Neutrophils % 86.1 % (41.7-73.7); Nucleated Red Blood Cells % 0.2 % (0-0); Platelets 233 thou/uL (152-406); RBC Red Blood Cell Count 2.64 M/uL (3.86-4.86); Red Cell Distribution Width 16.6 % (12.1-15.2)
[2023-09-25 05:31] LABS: Anion Gap 11.9 mEq/L (5.0-15.0); Phosphorus 2.1 mg/dL (2.5-4.9); Potassium 2.9 mEq/L (3.5-5.1)
[2023-09-25 05:53] LABS: Band Neutrophils 11 % (0-1); Differential Total Cells Count 100; Lymphocytes 8 % (15-42); Metamyelocytes 9 % (0-0); Monocytes 7 % (0-10); Segmented Neutrophils 65 % (40-80)
[2023-09-25 05:55] LABS: Blood Morphology Comment NOT SEEN (NOT SEEN)
[2023-09-25 05:56] LABS: Platelet Estimate ADEQ
[2023-09-25] MEDS: KCL 20 MEQ/100 mL IVPB 20 MEQ/100 ML BAG IV SCH (06:09)
[2023-09-25] MEDS: POTASSIUM PHOS IN 0.9 % NACL 15 MMOL/250 ML BAG IV ONE (11:13)
[2023-09-25] MEDS ORDERED: MORPHINE 2 MG/ML SYR IV PRN (17:43)
[2023-09-25] MEDS ORDERED: LORazepam 2 MG/ML VIAL IV PRN (17:43)
--- NOTE | 2023-09-25 17:54 | P.PN ---
Subjective Date of Service: 09/25/23 Chief Complaint: Weakness Patient patient stated she does not want anything done. She she requested all medications stopped, no labs, no turning and only want comfort measures. Physical Examination - Vital Signs Temperature: 97.9 F Blood Pressure: 124/66 Pulse: 68 Respirations: 18 Pulse Ox (%): 97 Assessment And Plan - Plan Physical Exam: GEN: Alert, oriented x 4, sleeping all the time but easily arousable. HEENT: Sclera anicteric CV: Regular rate and rhythm, b/l lower extremity lymphedema Pulm: Nonlabored respirations on room air, clear bilaterally ABD: Soft, nontender, nondistended Integumentary: right breast mass with ulceration and discharge on lateral border extending to axilla. Extremities: Right upper extremity lymphedema Neuro: Normal speech, normal affect, no focal motor deficit. vitals reviewed Problem List: Right Breast cancer with inflammatory cellulitis; on chemotherapy intertrigo Anemia of chronic disease secondary to bone marrow suppression from chemo Hypertension Transient hypotension; improved A-fib on chronic anticoagulation Brain Mass s/p craniectomy (~6months ago) Lower extremity lymphedema Stage III bilateral gluteal decubitus ulcer Right Breast cancer with inflammatory cellulitis; on chemotherapy CT chest/abd/pelvis (09/17): Right axillary fluid collection (4.1x3cm) with edema in right lateral chest wall and RUE. +Possible distal rectosigmoid colitis. Known fluid collection-right axilla for few months General surgery, Dr. Stiles input appreciated. Fluid collection thought to be a seroma. Medical management recommended by Dr. Stiles On antibiotics and infectious disease is following Blood culture showed no growth. Oral intake has also been poor. Dr. Ferrell recommended rehab first and when she is feeling better, she can meet with her in the office and discuss goals of care. On empiric IV antibiotics given leukocytosis. Infectious disease input appreciated. PRN analgesics / antiemetics Patient stated she does not want to go through chemotherapy again even when she gets better. Patient mentioned she does not want to pursue any more chemo. Now she wants all medications stopped, no labs and only want to be kept comfortable. Patient is alert and oriented, she is aware of her situation, family also aware and plans to proceed with hospice tomorrow. Will initiate comfort measures today per patient wishes. Antibiotics discontinued. Social service consulted for inpatient hospice. intertrigo/gluteal decubitus ulcer noted on inguinal folds continue nystatin powder (09/17-) Pressure ulcer precautions Local wound care as patient wishes. Anemia of chronic disease secondary to bone marrow suppression from chemo Patient denies any bleeding recently. No obvious bleeds on exam. Denies any abdominal pain. No bloody stools most likely secondary to chemo / bone marrow suppression Comfort measures initiated. Hypertension Transient hypotension; improved Bradycardia Patient has soft blood pressure. Coreg is on hold due to bradycardia and soft blood pressure. Comfort measures initiated A-fib on chronic anticoagulation Eliquis and Coreg discontinued.
--- NOTE | 2023-09-26 14:12 | P.DS ---
Admission Date: 09/18/23 Discharge Date: 09/26/23 Disposition: HOSPICE-MEDICAL FACILITY Reason for Admission: Weakness Brief History of Present Illness: 73-year-old female with past medical history of HTN, obesity, A-fib on chronic anticoagulation with Eliquis, brain mass status post craniectomy 6 months ago, right breast canceron chemotherapy with Dr. Ferrell, presented to the ER because of increasing weakness and malaise of 1 week. She denied any nausea or vomiting but admit to decreased p.o. intake. She states some loose stools with diarrhea but denies any dysuria or hematuria. On arrival in the ED she was noted with mild leukopenia with WBC at 4.0, hemoglobin of 7.9, BMP shows sodium of 135. Urinalysis was positive for UTI. Further workup showed some discharge with redness over the right axillary area. Surgery was consulted for right axillary abscess and patient admitted for further management. Hospital Course: Diagnosis Right Breast cancer with inflammatory cellulitis; on chemotherapy intertrigo Anemia of chronic disease secondary to bone marrow suppression from chemo Hypertension Transient hypotension; improved A-fib on chronic anticoagulation Brain Mass s/p craniectomy (~6months ago) Lower extremity lymphedema Stage III bilateral gluteal decubitus ulcer Right Breast cancer with inflammatory cellulitis; on chemotherapy CT chest/abd/pelvis (09/17): Right axillary fluid collection (4.1x3cm) with edema in right lateral chest wall and RUE. +Possible distal rectosigmoid colitis. Known fluid collection-right axilla for few months Patient seen by general surgery Dr. Stiles, fluid collection thought to be a seroma. Medical management recommended by Dr. Stiles Patient was treated with several days of IV antibiotics. Blood culture showed no growth. Oral intake has also been poor. Dr. Ferrell recommended rehab first and when she is feeling better, she can meet with her in the office and discuss goals of care. Infectious disease evaluated patient and assisted with management. PRN analgesics / antiemetics Patient stated she does not want to go through chemotherapy again even when she gets better. She also requested all medications stopped, no labs and only want to be kept comfortable. Patient is alert and oriented, she is aware of her situation, family also aware. Comfort measures initiated according to patient wishes, hospice consulted and p atient has been accepted to inpatient hospice intertrigo/gluteal decubitus ulcer noted on inguinal folds continue nystatin powder (09/17-) Pressure ulcer precautions Local wound care as patient wishes. Anemia of chronic disease secondary to bone marrow suppression from chemo Patient denies any bleeding recently. No obvious bleeds on exam. Denies any abdominal pain. No bloody stools most likely secondary to chemo / bone marrow suppression Patient is discharging on hospice. Hypertension Transient hypotension; improved Bradycardia Patient has soft blood pressure. Coreg is on hold due to bradycardia and soft blood pressure. Hospice initiated A-fib on chronic anticoagulation Eliquis and Coreg discontinued and hospice initiated. Vital Signs/Physical Exam: Temp Pulse Resp BP Pulse Ox 97.4 F 75 16 126/67 94 09/26/23 08:00 09/26/23 08:00 09/26/23 08:00 09/26/23 08:00 09/26/23 08:00 General: Alert, In no apparent distress Respiratory: Clear to auscultation bilaterally, Normal air movement Cardiovascular: Regular rate/rhythm, Normal S1 S2 Gastrointestinal: Soft and benign, Non-distended Laboratory Data at Discharge: WBC 20.00 thou/uL (4.3-10.9) H 09/25/23 04:59 Hgb 7.4 g/dL (12.0-15.0) L 09/25/23 04:59 Hct 22.4 % (36.0-45.0) L 09/25/23 04:59 Plt Count 233 thou/uL (152-406) 09/25/23 04:59 PT 33.4 SECONDS (9.5-12.5) H 09/17/23 23:05 INR 3.14 09/17/23 23:05 APTT 36.8 SECONDS (24.3-36.9) 09/17/23 23:05 Sodium 141 mEq/L (136-145) 09/25/23 04:59 Potassium Cancelled 09/25/23 18:00 BUN 16 mg/dL (7-18) 09/25/23 04:59 Creatinine 0.53 mg/dL (0.55-1.02) L 09/25/23 04:59 Glucose 107 mg/dL (74-106) H 09/25/23 04:59 Phosphorus Cancelled 09/25/23 05:00 Magnesium 2.1 mg/dL (1.6-2.4) 09/24/23 04:35 Total Bilirubin 1.0 mg/dL (0.2-1.0) 09/19/23 05:59 AST 9 U/L (15-37) L 09/19/23 05:59 ALT 13 U/L (13-56) 09/19/23 05:59 Alkaline Phosphatase 49 U/L (45-117) 09/19/23 05:59 Home Medications: LORazepam [Ativan*] 2 mg IV Q4H PRN vial 09/26/23 Medihoney [Medihoney Woundcare Gel*] 1 appl TOP DAILY tube 09/26/23 Ondansetron [Zofran*] 4 mg IV Q8H PRN vial 09/26/23 Followup: Kacy Adams MD [Primary Care Provider] - Time spent managing pt's care (in minutes): 36
[2023-09-26 22:36] VITALS: BP 137/67; TEMP 97.5
[2023-09-27 00:34] VITALS: O2SAT 96
--- NOTE | 2023-09-29 17:16 | EKG ---
Test Date: 2023-09-22 Test Time: 15:24:37 Supervisor Files: [place] MEASUREMENT RESULTS: Intervals: Rate: 73 UT: QRSD: 82 QT: 418 QTc: 460 [place]: P: UT: QRS: -10 T: 201 INTERPRETIVE STATEMENTS: Atrial fibrillation with premature ventricular or aberrantly conducted complexes Low voltage QRS Inferior infarct, age undetermined ST & T wave abnormality, consider anterolateral ischemia or digitalis effect Abnormal ECG Compared to ECG 09/17/2023 22:30:39 Ventricular premature complex(es) now present Low QRS voltage now present ST (T wave) deviation now present Possible ischemia now present Myocardial infarct finding still present Electronically Signed On 09-29-23 16:51:06 CDT by Cornell Deng
--- NOTE | 2023-09-29 17:39 | EKG ---
Test Date: 2023-09-17 Test Time: 22:30:39 Glass Presser: RV MEASUREMENT RESULTS: Intervals: Rate: 71 [place]: QRSD: 82 QT: 394 QTc: 428 Success: P: [place]: QRS: -13 T: -76 INTERPRETIVE STATEMENTS: Atrial fibrillation Inferior infarct, age undetermined Anterolateral infarct, age undetermined Abnormal ECG No previous ECG available for comparison Electronically Signed On 09-29-23 16:57:41 CDT by Cornell Deng
== END 2023-09-26 23:00 | disposition hospice, inpatient (51) | DRG 602 ==
LOC: ER 22:18 → ERHOLD 09-18 05:03 → 4TH 09-18 11:27 → 3RD-ICU 09-22 15:32 → 4TH 09-24 11:54
PROVIDERS: ADMIT Internal Medicine; ATTEND Internal Medicine
PROC: 02HV33Z Insertion of Infusion Device into Superior Vena Cava, Percutaneous Approach (ICD-10-PCS; principal; 2023-09-22)
DX: L03.111 Cellulitis of right axilla (principal); L89.313 Pressure ulcer of right buttock, stage 3; L89.323 Pressure ulcer of left buttock, stage 3; E44.0 Moderate protein-calorie malnutrition; N39.0 Urinary tract infection, site not specified; L02.411 Cutaneous abscess of right axilla; I95.89 Other hypotension; E87.6 Hypokalemia; L30.4 Erythema intertrigo; C50.911 Malignant neoplasm of unspecified site of right female breast; I89.0 Lymphedema, not elsewhere classified; I48.91 Unspecified atrial fibrillation; I10 Essential (primary) hypertension; D72.819 Decreased white blood cell count, unspecified; D64.81 Anemia due to antineoplastic chemotherapy; T45.1X5A Adverse effect of antineoplastic and immunosuppressive drugs, initial encounter; R00.1 Bradycardia, unspecified; Z66 Do not resuscitate; Z68.33 Body mass index [BMI] 33.0-33.9, adult; Z79.01 Long term (current) use of anticoagulants; Z79.02 Long term (current) use of antithrombotics/antiplatelets; Z79.899 Other long term (current) drug therapy
CPT/HCPCS: 36415; 71045; 71260; 74177; 80048; 80053; 80202; 81001; 82550; 83605; 83735; 84100; 84132; 84443; 85025; 85610; 85730; 87040; 87324; 93005; 96365; 96366; 97161; 97530; 99285; J0612; J0692; J3475; J3480; J7030; J7040; J7050; J7060; Q9967

== ENCOUNTER 2023-09-26 23:25 | Inpatient (IN) | payer OTHER ==
[2023-09-27] MEDS ORDERED: DIAZEPAM 10 MG/2 ML INJ SYRINGE IV PRN (01:14)
[2023-09-27] MEDS ORDERED: ATROPINE 1% OPTH DROPS 5ML SL PRN ×2 (01:16→15:31)
[2023-09-27] MEDS ORDERED: MORPHINE 4 MG/ML SYR IV PRN (01:17)
[2023-09-27] MEDS ORDERED: ACETAMINOPHEN 650MG/RECT SUPP PR PRN ×2 (01:18→15:34)
[2023-09-27] MEDS ORDERED: ONDANSETRON 4 MG/2 ML VIAL IV PRN ×2 (01:19→15:37)
[2023-09-27] MEDS ORDERED: BISACODYL 10 MG RECTAL SUPP PR PRN ×2 (01:20→15:37)
[2023-09-27 02:37] VITALS: BMI 33.5
[2023-09-27] MEDS ORDERED: DIAZEPAM 5 MG TABLET PO PRN (15:28)
[2023-09-28] MEDS: MORPHINE 4 MG/ML SYR IV PRN (00:52)
[2023-09-28 10:37] VITALS: O2SAT 93
[2023-09-29 13:19] VITALS: BP 118/59; TEMP 97.1
== END 2023-09-29 17:04 | disposition hospice, inpatient (51) | DRG 951 ==
LOC: 4TH 23:25
PROVIDERS: ADMIT Hospitalist; ATTEND Hospitalist
DX: Z51.5 Encounter for palliative care (principal)

== ENCOUNTER 2023-09-29 16:40 | Observation (INO) | payer OTHER ==
--- NOTE | 2023-09-29 17:26 | P.HP ---
Certification for Inpatient Patient admitted to: Observation With expected LOS: <2 Midnights Patient will require the following post-hospital care: Hospice Practitioner: I am a practitioner with admitting privileges, knowledge of patient current condition, hospital course, and medical plan of care. Services: Services provided to patient in accordance with Admission requirements found in Title 42 Section 412.3 of the Code of Federal Regulations Patient History Date of Service: 09/29/23 Reason for admission: pain, comfort measures History of Present Illness: 73yo F, PMH: HTN, obesity, afib, breast cancer with brain mass, s/p craniectomy ~6-7 months ago. She was recently admitted for concern of cellulitis, intertrigo, weakness. She ultimately decided to pursue comfort measures, declining any further testing/chemo and was discharged to inpatient hospice on 09/26/23. She was getting set up for discharge home today with hospice, however there was reportedly some issue with her hospice services and services were changes to a different hospice company. For some reason this lead to delay in discharge home and without a hospice service providing care for the patient today. After unsuccessfully attempting to resolve this issue, it was decided that she would be admitted to the hospitalist service for comfort measures / to receive care today, with plans for potential discharge home on hospice tomorrow. She is currently resting in her bed. Denies any current pain or nausea, but states this can come and go. Awaiting discharge home on hospice Allergies No Known Allergies Allergy (Verified 05/14/23 14:46) Home Medications: LORazepam [Ativan*] 2 mg IV Q4H PRN vial 09/26/23 Medihoney [Medihoney Woundcare Gel*] 1 appl TOP DAILY tube 09/26/23 Ondansetron [Zofran*] 4 mg IV Q8H PRN vial 09/26/23 - Past Medical/Surgical History Diabetic: No -: afib -: htn -: Breast cancer -: anemia of chronic disease -: brain mass s/p craniectomy -: lypmhedema -: Craniotomy for brain mass - Family History Family History: Reviewed- Non-Contributory - Social History Smoking Status: Unknown if ever smoked Alcohol use: No CD- Drugs: No Caffeine use: No Place of Residence: Home Review of Systems 10-point ROS is otherwise unremarkable Physical Examination - Physical Exam General: Alert, In no apparent distress, Oriented x2 HEENT: EOMI, Sclerae nonicteric Neck: Other (left sided IV access) Respiratory: Clear to auscultation bilaterally, Diminished Cardiovascular: No edema, Regular rate/rhythm Gastrointestinal: Soft and benign, Non-distended Musculoskeletal: Erythema (slightly in RT axilla/breast), Tenderness Integumentary: Skin lesion (R axilla /R breast, dressing in place) Neurological: Normal speech, Normal affect Assessment and Plan Discharge Plan: Home Plan to discharge in: 24 Hours - Advance Directives Does patient have a Living Will: Yes Does patient have a Durable POA for Healthcare: Yes - Code Status/Comfort Care Code Status: Do Not Attempt Resuscitat Comfort Measures: Hospice Care Physician Review Additional Text: Problem List Breast cancer Brain Mass s/p craniectomy (~6months ago) intertrigo Anemia of chronic disease secondary to bone marrow suppression from chemo A-fib Lower extremity lymphedema patient admitted to hospitalist service after discharged from inpatient hospice continue with comfort measures - confirmed with patient analgesics, anxiolytics, nausea medication /scopolamine as needed discussed with nursing staff and case management planning for discharge home on different hospice service Time Spent Managing Pts Care (In Minutes): 45
[2023-09-29] MEDS ORDERED: DIAZEPAM 10 MG/2 ML INJ SYRINGE IV PRN (17:32)
[2023-09-29] MEDS ORDERED: ATROPINE 1% OPTH DROPS 5ML SL PRN (17:34)
[2023-09-29] MEDS ORDERED: ACETAMINOPHEN 650MG/RECT SUPP PR PRN (17:36)
[2023-09-29] MEDS ORDERED: ONDANSETRON 4 MG/2 ML VIAL IV PRN (17:38)
[2023-09-29 17:39] VITALS: BMI 33.5
[2023-09-29] MEDS: BISACODYL 10 MG RECTAL SUPP PR ONE (17:50)
[2023-09-30] MEDS: MORPHINE 4 MG/ML SYR IV PRN (05:03)
[2023-09-30 09:48] VITALS: BP 100/53; TEMP 98.1
[2023-09-30 10:19] VITALS: O2SAT 95
--- NOTE | 2023-09-30 11:17 | P.DS ---
Admission Date: 09/29/23 Discharge Date: 09/30/23 Disposition: HOSPICE-HOME Reason for Admission: pain, comfort measures Brief History of Present Illness: 73yo F, PMH: HTN, obesity, afib, breast cancer with brain mass, s/p craniectomy ~6-7 months ago. She was recently admitted for concern of cellulitis, intertrigo, weakness. She ultimately decided to pursue comfort measures, declining any further testing/chemo and was discharged to inpatient hospice on 09/26/23. She was getting set up for discharge home today with hospice, however there was reportedly some issue with her hospice services and services were changes to a different hospice company. For some reason this lead to delay in discharge home and without a hospice service providing care for the patient today. After unsuccessfully attempting to resolve this issue, it was decided that she would be admitted to the hospitalist service for comfort measures / to receive care today, with plans for potential discharge home on hospice tomorrow. She is currently resting in her bed. Denies any current pain or nausea, but states this can come and go. 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 A-fib Lower extremity lymphedema Physical Exam: General: Alert, In no apparent distress, Oriented x2 HEENT: EOMI, Sclerae nonicteric Neck: Other (left sided IV access) Respiratory: Clear to auscultation bilaterally, Diminished Cardiovascular: No edema, Regular rate/rhythm Gastrointestinal: Soft and benign, Non-distended Musculoskeletal: Erythema (slightly in RT axilla/breast), Tenderness Integumentary: Skin lesion (R axilla /R breast, dressing in place) Neurological: Normal speech, Normal affect Vital Signs/Physical Exam: Temp Pulse Resp BP Pulse Ox 98.1 F 70 18 100/53 L 95 09/30/23 08:00 09/30/23 08:00 09/30/23 10:23 09/30/23 08:00 09/30/23 10:23 Home Medications: LORazepam [Ativan*] 2 mg IV Q4H PRN vial 09/26/23 Medihoney [Medihoney Woundcare Gel*] 1 appl TOP DAILY tube 09/26/23 Ondansetron [Zofran*] 4 mg IV Q8H PRN vial 09/26/23
== END 2023-09-30 11:30 | disposition hospice, home (50) ==
LOC: 4TH 16:40
PROVIDERS: ADMIT Hospitalist; ATTEND Hospitalist
DX: G89.3 Neoplasm related pain (acute) (chronic) (principal); C50.919 Malignant neoplasm of unspecified site of unspecified female breast; C79.31 Secondary malignant neoplasm of brain; L30.4 Erythema intertrigo; I48.91 Unspecified atrial fibrillation; I10 Essential (primary) hypertension; I89.0 Lymphedema, not elsewhere classified; E66.9 Obesity, unspecified; D63.8 Anemia in other chronic diseases classified elsewhere; Z98.890 Other specified postprocedural states
CPT/HCPCS: G0378; G0379